=== PATIENT | male | born 1990 | race Two or more races ===

== ENCOUNTER 2021-02-25 19:50 | Emergency (ER) | payer MEDICAID, OTHER ==
[~2021-02-25] VITALS: Ht 175.3 cm; Wt 79.4 kg
[2021-02-25] MEDS ORDERED: SODIUM CHLORIDE 0.9% 1,000 ML IV ONE (20:00)
[2021-02-25 20:29] LABS: Basophils # (auto) 0 10 ^3/uL (0-0.2); Basophils % (auto) 0.6 % (0.0-2.0); Eosinophils # (auto) 0.1 10 ^3/uL (0-0.8); Eosinophils % (auto) 2.6 % (0.0-7.0); Hematocrit 42.2 % (41.0-53.0); Hemoglobin 14.2 g/dL (13.5-17.5); Lymphocytes # (auto) 1.7 10 ^3/uL (0.4-5.4); Lymphocytes % (auto) 49.9 % (10.0-50.0); Mean Corpuscular Hemoglobin 30.5 pg (28.0-32.0); Mean Corpuscular Hgb Conc. 33.5 g/dL (32.0-36.0); Mean Corpuscular Volume 91.1 fL (80.0-100.0); Monocytes # (auto) 0.2 10 ^3/uL (0-1.3); Monocytes % (auto) 6.5 % (0.0-12.0); Neutrophils # (auto) 1.4 10 ^3/uL (1.6-8.6); Neutrophils % (auto) 40.4 % (37.0-80.0); Nucleated Red Blood Cells % 0.1 %; Red Blood Cells 4.63 10^6/uL (4.5-5.90); Red Cell Distribution Width 14.2 % (11.8-14.3); White Blood Cell 3.4 10^3/uL (4.4-10.8)
[2021-02-25 20:41] LABS: Albumin 3.3 g/dL (3.4-5.0); BUN/Creatinine Ratio 5.3; Calcium 7.7 mg/dL (8.5-10.1); Potassium 3.6 mmol/L (3.5-5.1)
[2021-02-25 20:43] LABS: Bilirubin, Total 0.3 mg/dL (0.2-1.0)
[2021-02-25] MEDS ORDERED: levETIRAcetam 500 MG/5ML INJ IV ONE (21:37)
[2021-02-26] MEDS ORDERED: LORazepam 2MG/ML-1ML VIAL ONE ×2 (00:53→05:53)
[2021-02-26] MEDS ORDERED: levETIRAcetam 500 MG/5ML INJ IV ONE (00:54)
[2021-02-26] MEDS ORDERED: LORazepam 2MG/ML-1ML VIAL IV ONE ×2 (01:00→06:00)
[2021-02-26] MEDS ORDERED: FOLIC ACID 1 MG in D5W 5% 50 ML INJ ONE (05:30)
[2021-02-26] MEDS ORDERED: THIAMINE 100mg/ml INJ (200mg/2ml VIAL) IV ONE (05:30)
[2021-02-26] MEDS ORDERED: FOLIC ACID 1 MG, MULTIPLE VITAMIN 10 ML, MAGNESIUM SULF SDV 50% 8 MEQ, THIAMINE INJ 100... INJ ONE ×5 (05:30)
[2021-02-26] MEDS ORDERED: SODIUM CHLORIDE 0.9% 1,000 ML IV ONE (05:30)
[2021-02-26 05:46] LABS: Urine Bacteria NONE SEEN /hpf (None Seen); Urine Blood Negative /uL (Negative); Urine Specific Gravity 1.007 (1.001-1.035); Urine WBC <1 /hpf (0 - 3)
[2021-02-26] MEDS ORDERED: CALCIUM GLUC 1,000mg/50ml-NS 50 ML IV ONE (06:15)
[2021-02-26 07:23] LABS: Amphetamine Screen, Urine NEGATIVE (NEGATIVE); Barbiturate Scree,Urine NEGATIVE (NEGATIVE); Benzodiazephine Screen, Urine POSITIVE (NEGATIVE); Cannabinoid Screen, Urine NEGATIVE (NEGATIVE); Cocaine Screen, Urine NEGATIVE (NEGATIVE); Phencyclidine Screen, Urine NEGATIVE (NEGATIVE)
[2021-02-26 07:35] LABS: Opiate Scree,Urine NEGATIVE (NEGATIVE)
[2021-02-26 08:00] VITALS: BP 91/55
== END 2021-02-26 10:31 | disposition left against medical advice (07) ==
LOC: EDBD 19:50 → ER 19:53
DX: G40.901 Epilepsy, unspecified, not intractable, with status epilepticus (principal); R41.82 Altered mental status, unspecified; F10.129 Alcohol abuse with intoxication, unspecified; E83.51 Hypocalcemia; M54.6 Pain in thoracic spine; Z20.822 Contact with and (suspected) exposure to COVID-19; Y90.8 Blood alcohol level of 240 mg/100 ml or more
CPT/HCPCS: 36415; 70450; 70486; 71045; 72125; 72128; 72170; 80053; 80307; 80320; 81001; 85025; 86850; 86900; 86901; 87426; 93005; 96361; 96365; 96366; 96368; 96375; 96376; 99285; J0610; J1953; J2060; J3411; J3475; J7030; J7060

== ENCOUNTER 2021-05-18 16:09 | Emergency (ER) | payer MEDICAID ==
[~2021-05-18] VITALS: Ht 175.3 cm; Wt 72.1 kg
[2021-05-18 17:23] LABS: Hematocrit 47.9 % (41.0-53.0); Mean Corpuscular Hemoglobin 30.9 pg (28.0-32.0); Mean Corpuscular Hgb Conc. 33.5 g/dL (32.0-36.0); White Blood Cell 3.1 10^3/uL (4.4-10.8)
[2021-05-18 17:35] LABS: Potassium 3.9 mmol/L (3.5-5.1)
[2021-05-18 17:45] LABS: Albumin 3.7 g/dL (3.4-5.0); BUN/Creatinine Ratio 4.4; Bilirubin, Total 0.5 mg/dL (0.2-1.0); Calcium 7.6 mg/dL (8.5-10.1); Total Protein 7.4 g/dL (6.4-8.2)
[2021-05-18 18:00] VITALS: BP 120/79
[2021-05-18 18:04] LABS: Band Neutrophils % (manual) 0; Basophils % (manual) 0 (0.0-2.0); Blast Cells 0; Metamyelocytes % 0; Myelocytes % 0; Promyelocytes % 0
[2021-05-18 18:44] LABS: Eosinophils % (manual) 2 (0-7); Lymphocytes % (manual) 59 (10.0-50.0); Monocytes % (manual) 7 (0-12); Reactive Lymphocytes 1
== END 2021-05-18 21:50 | disposition left against medical advice (07) ==
LOC: EDBD 16:09 → ER 16:09
DX: R41.82 Altered mental status, unspecified (principal); R56.9 Unspecified convulsions
CPT/HCPCS: 36415; 80053; 80320; 85007; 85027

== ENCOUNTER 2021-05-21 11:14 | Inpatient (IN) | payer MEDICAID ==
[~2021-05-21] VITALS: Ht 180.3 cm; Wt 90.7 kg
[2021-05-21] MEDS ORDERED: LORazepam 2MG/ML-1ML VIAL ONE (11:50)
[2021-05-21] MEDS ORDERED: LORazepam 2MG/ML-1ML VIAL IV ONE (12:00)
[2021-05-21 12:20] LABS: Albumin 3.6 g/dL (3.4-5.0); Calcium 7.8 mg/dL (8.5-10.1); Potassium 4.5 mmol/L (3.5-5.1)
[2021-05-21 12:23] LABS: BUN/Creatinine Ratio 9.1; Bilirubin, Total 0.6 mg/dL (0.2-1.0); Total Protein 7.2 g/dL (6.4-8.2)
[2021-05-21 12:34] LABS: Basophils # (auto) 0 10 ^3/uL (0-0.2); Basophils % (auto) 0.5 % (0.0-2.0); Eosinophils # (auto) 0 10 ^3/uL (0-0.8); Eosinophils % (auto) 0.4 % (0.0-7.0); Hemoglobin 14.3 g/dL (13.5-17.5); Lymphocytes # (auto) 1.5 10 ^3/uL (0.4-5.4); Lymphocytes % (auto) 32.2 % (10.0-50.0); Mean Corpuscular Hemoglobin 30.5 pg (28.0-32.0); Mean Corpuscular Hgb Conc. 33.3 g/dL (32.0-36.0); Mean Corpuscular Volume 91.8 fL (80.0-100.0); Monocytes # (auto) 0.4 10 ^3/uL (0-1.3); Monocytes % (auto) 7.5 % (0.0-12.0); Neutrophils # (auto) 2.8 10 ^3/uL (1.6-8.6); Neutrophils % (auto) 59.4 % (37.0-80.0); Nucleated Red Blood Cells % 0.1 %; Red Blood Cells 4.69 10^6/uL (4.5-5.90); Red Cell Distribution Width 14.3 % (11.8-14.3); White Blood Cell 4.7 10^3/uL (4.4-10.8)
[2021-05-21] MEDS ORDERED: SODIUM CHLORIDE 0.9% 1,000 ML IV SCH (17:15)
[2021-05-21] MEDS ORDERED: FOLIC ACID 1 MG in D5W 5% 50 ML INJ SCH (17:15)
[2021-05-21] MEDS ORDERED: chlordiazePOXIDE HCL 25 MG CAP PO PRN (17:15)
[2021-05-21] MEDS ORDERED: ACETAMINOPHEN 325 MG TAB PO PRN (17:15)
[2021-05-21] MEDS ORDERED: ONDANSETRON HCL 4 MG/2 ML VIAL IV PRN (17:15)
[2021-05-21] MEDS ORDERED: LORazepam 2MG/ML-1ML VIAL IV PRN (17:15)
[2021-05-21] MEDS ORDERED: MIDAZOLAM HCL 2MG/2ML 2ml VIAL (1mg/ml) IV ONE (17:30)
[2021-05-21 17:41] LABS: Urine Bacteria NONE SEEN /hpf (None Seen); Urine Blood Negative /uL (Negative); Urine Specific Gravity 1.005 (1.001-1.035); Urine WBC 1 /hpf (0 - 3)
[2021-05-21 17:50] LABS: Amphetamine Screen, Urine NEGATIVE (NEGATIVE); Barbiturate Scree,Urine NEGATIVE (NEGATIVE); Benzodiazephine Screen, Urine POSITIVE (NEGATIVE); Cannabinoid Screen, Urine NEGATIVE (NEGATIVE); Cocaine Screen, Urine NEGATIVE (NEGATIVE); Opiate Scree,Urine NEGATIVE (NEGATIVE); Phencyclidine Screen, Urine NEGATIVE (NEGATIVE)
[2021-05-21] MEDS ORDERED: AMMONIA 0.33 ML INHALANT IN ONE (17:55)
[2021-05-21] MEDS ORDERED: THIAMINE 100mg/ml INJ (200mg/2ml VIAL) IV SCH (18:00)
[2021-05-21 19:41] VITALS: BP 123/77
[2021-05-21] MEDS ORDERED: GABAPENTIN 100 MG CAP PO SCH (22:00)
== END 2021-05-21 19:46 | disposition left against medical advice (07) | DRG 53 ==
LOC: ER 11:14 → EDBD 11:14 → EDUNIT# 11:14 → TELE 17:21
PROVIDERS: ADMIT Internal Medicine; ATTEND Internal Medicine
DX: G40.909 Epilepsy, unspecified, not intractable, without status epilepticus (principal); F10.20 Alcohol dependence, uncomplicated; Z53.29 Procedure and treatment not carried out because of patient's decision for other reasons; Z91.14 Patient's other noncompliance with medication regimen
CPT/HCPCS: 36415; 70450; 80053; 80307; 80320; 81001; 85025; 93005; 96365; 96375; 99291; G0378; J2250; J7060

== ENCOUNTER 2021-05-22 11:15 | Emergency (ER) | payer MEDICAID ==
[~2021-05-22] VITALS: Ht 182.9 cm; Wt 74.8 kg
[2021-05-22 12:50] LABS: Basophils # (auto) 0 10 ^3/uL (0-0.2); Basophils % (auto) 0.5 % (0.0-2.0); Eosinophils # (auto) 0 10 ^3/uL (0-0.8); Eosinophils % (auto) 0.7 % (0.0-7.0); Hematocrit 39.8 % (41.0-53.0); Lymphocytes # (auto) 1.4 10 ^3/uL (0.4-5.4); Mean Corpuscular Hemoglobin 30.2 pg (28.0-32.0); Mean Corpuscular Hgb Conc. 32.7 g/dL (32.0-36.0); Mean Corpuscular Volume 92.2 fL (80.0-100.0); Monocytes # (auto) 0.5 10 ^3/uL (0-1.3); Monocytes % (auto) 12.5 % (0.0-12.0); Neutrophils # (auto) 1.8 10 ^3/uL (1.6-8.6); Neutrophils % (auto) 49.3 % (37.0-80.0); Nucleated Red Blood Cells % 0.1 %; Red Blood Cells 4.32 10^6/uL (4.5-5.90); Red Cell Distribution Width 14.3 % (11.8-14.3); White Blood Cell 3.7 10^3/uL (4.4-10.8)
[2021-05-22] MEDS ORDERED: LORazepam MDV 2MG/ML 10 ML IV ONE (13:05)
[2021-05-22] MEDS ORDERED: MIDAZOLAM HCL 5 MG/ML-1ML VIAL ONE (13:13)
[2021-05-22] MEDS ORDERED: MIDAZOLAM HCL 5 MG/ML-1ML VIAL IV ONE (13:15)
[2021-05-22] MEDS ORDERED: LORazepam 2MG/ML-1ML VIAL IV ONE (13:15)
[2021-05-22 13:17] LABS: Calcium 7.2 mg/dL (8.5-10.1); Potassium 3.4 mmol/L (3.5-5.1)
[2021-05-22 13:23] LABS: BUN/Creatinine Ratio 6.5; Bilirubin, Total 0.5 mg/dL (0.2-1.0); Total Protein 6.1 g/dL (6.4-8.2)
[2021-05-22] MEDS ORDERED: AMMONIA 0.33 ML INHALANT IN ONE ×3 (13:24→17:26)
[2021-05-22] MEDS ORDERED: SODIUM CHLORIDE 0.9% 1,000 ML IVB ONE (13:45)
[2021-05-22] MEDS ORDERED: MULTIPLE VITAMIN 10 ML, MAGNESIUM SULF SDV 50% 8 MEQ, THIAMINE INJ 100 MG in SODIUM CHL... IV SCH ×2 (13:46→14:00)
[2021-05-22 13:50] LABS: Urine WBC None Seen /hpf (0 - 3)
[2021-05-22 14:02] LABS: Urine Bacteria NONE SEEN /hpf (None Seen); Urine Blood Negative /uL (Negative); Urine Specific Gravity 1.002 (1.001-1.035)
[2021-05-22 14:18] LABS: Amphetamine Screen, Urine NEGATIVE (NEGATIVE); Barbiturate Scree,Urine NEGATIVE (NEGATIVE); Benzodiazephine Screen, Urine POSITIVE (NEGATIVE); Cannabinoid Screen, Urine NEGATIVE (NEGATIVE); Cocaine Screen, Urine NEGATIVE (NEGATIVE); Phencyclidine Screen, Urine NEGATIVE (NEGATIVE)
[2021-05-22 14:27] LABS: Opiate Scree,Urine NEGATIVE (NEGATIVE)
[2021-05-22 20:00] VITALS: BP 110/78
== END 2021-05-22 20:56 | disposition short-term general hospital (02) ==
LOC: EDBD 11:15 → ER 11:15 → EDUNIT# 11:15 → ER 20:56
DX: G40.901 Epilepsy, unspecified, not intractable, with status epilepticus (principal); F10.129 Alcohol abuse with intoxication, unspecified; E87.6 Hypokalemia; R74.8 Abnormal levels of other serum enzymes; Y90.8 Blood alcohol level of 240 mg/100 ml or more
CPT/HCPCS: 36415; 80053; 80307; 80320; 81001; 83735; 84425; 85025; 93005; 96365; 96366; 96375; 99285; J1953; J2060; J2250; J3411; J3475; J7030; J7060